=== PATIENT | male | born 1995 | race Caucasian/White ===

== ENCOUNTER 2021-06-23 09:01 | Outpatient (REF) | payer OTHER, SELFPAY ==
[2021-06-23 09:17] LABS: MANUAL DIFF FLAG NO
[2021-06-23 10:22] LABS: Basophils Percent Auto 0.8 % (0-2); Eosinophils Absolute Auto 0.2 X10*3/uL (0.0-0.4); Eosinophils Percent Auto 2.8 % (0-4); Hematocrit 44.1 % (42.0-52.0); Hemoglobin 14.9 g/dl (14.0-18.0); Imm Gran Abs Auto 0.01 X10*3/uL (0.00-0.03); Imm Gran Pct Auto 0.2 % (0.0-0.4); Lymphocytes Absolute Auto 1.5 X10*3/uL (1.2-4.9); Mean Corpuscular HGB Conc 33.8 g/dl (31.0-36.0); Mean Corpuscular Volume 88.7 fL (80.0-98.0); Mean Platelet Volume 9.8 fL (9.4-12.4); Monocytes Absolute Auto 0.5 X10*3/uL (0.1-1.2); Monocytes Percent Auto 8.9 % (2-11); Neutrophils Absolute Auto 3.1 x10*3/uL (2.0-8.3); Neutrophils Percent Auto 58.3 % (45-73); Platelet Count 229 X10*3/uL (160-400); Red Blood Count 4.97 X10*6/uL (4.60-5.80); Red Cell Distribution Width 12.4 % (11.0-16.0); White Blood Count 5.3 X10*3/uL (4.8-10.8)
[2021-06-23 10:41] LABS: Appearance Urine HAZY; Color Urine YELLOW; Glucose Urine UA NEG (NEG); Leukocyte Esterase Urine NEG (NEG); Nitrite Urine NEG (NEG); Urine Blood NEG (NEG); Urine Ketones NEG (NEG); Urine Protein NEG (NEG-TRACE)
[2021-06-23 10:47] LABS: Alanine Aminotransferase 17 U/L (0-40); Albumin Level 4.6 g/dL (3.5-5.0); Alkaline Phosphatase 53 U/L (39-117); Anion Gap 10 (12-20); Aspartate Amino Transferase 16 U/L (5-37); Bilirubin Total 0.8 mg/dL (0.0-1.0); Blood Urea Nitrogen 12 mg/dL (9-16); Calcium 9.6 mg/dL (8.4-10.2); Carbon Dioxide 28 mmol/L (22-29); Chloride 106 mmol/L (96-108); Cholesterol 170 mg/dL; Estimated Glomerular Filt Rate > 60; Glucose Fasting 84 mg/dL (60-99); HDL Cholesterol 52 mg/dL; LDL Cholesterol Calculated 111 mg/dl; Potassium 4.6 mmol/L (3.3-5.1); Sodium 139 mmol/L (135-145); Total Protein 7.2 g/dL (6.5-8.0); Triglycerides 37 mg/dL
[2021-06-23 11:08] LABS: TSH reflex Free T4 1.53 uIU/mL (0.32-4.0)
== END 2021-06-23 09:02 | disposition home or self-care (01) ==
LOC: HO.LAB 09:01
PROVIDERS: PCP Family Medicine; Visit Provider Hospitalist
DX: Z00.00 Encounter for general adult medical examination without abnormal findings (principal)
CPT/HCPCS: 36415; 80053; 80061; 81003; 84443; 85025

== ENCOUNTER 2022-11-19 10:46 | Outpatient (AMB) | payer OTHER, SELFPAY ==
[2022-11-19 10:53] VITALS: BP 132/72; PULSE 67; RESP 16; O2SAT 99; BMI 22.6
--- NOTE | 2022-11-19 10:53 | MHC.PC.OV ---
Vital Signs 11/19/22 10:53 Height 5 ft 9 in Weight 153 lb 6 oz BMI 22.6 BP 132/72 Blood Pressure Location Lt brachial Position Sitting Respiration 16 Pulse 67 Pulse Source Pulse Oximeter Pulse Oximetry (%) 99 Oxygen Delivery Method Room Air Intake Visit Reasons: CPE Intake Note: Patient is here for his physical today. Allergies No Known Allergies Allergy (Verified 11/19/22 10:59) Tobacco use date assessed: 11/19/22 Dental Screening Dental Screen Date: 11/19/22 Did you have a dental visit in the last 12 months?: No Did you have a dental problem in the last 6 months where you did not have access to dental care?: No Was dental information given to patient?: Yes HPI CPE HPI Details 26 y/o male presents for a CPE with f/u labs. No recent labs to review. PMHx: H/o cyst SurgHx: Cyst removal FHx: Grandmother: Breast Cancer. Uncle: Lung Cancer, smoker. SocHx: Smokes MJ daily. No cigarettes. No drugs. Single episode of palpitations. No chest pain associated with it. 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 José Luis Wang, Nayeli Song, Jas Sawyer and colleagues, with an educational zaida from [employer]. Review of Systems Const Denies chills, Denies fatigue, Denies fever(s), Denies headache(s) and Denies weakness Eyes Denies change in vision ENT Denies dizziness, Denies headache(s), Denies hearing loss, Denies nasal congestion, Denies sinus pain, Denies sinus pressure and Denies sore throat Card Denies chest pain, Denies lightheadedness, Denies dyspnea and Denies other (palpitations) Resp Denies cough, Denies dyspnea and Denies wheezing GI Denies abdominal pain, Denies melena, Denies hematochezia, Denies change in bowel habits, Denies dyspepsia and Denies nausea Denies hematuria and Denies dysuria Musc Denies abnormal gait, Denies myalgias, Denies arthralgias, Denies numbness and Denies tingling Skin/Breast Denies rash, Denies unusual bruising and Denies wounds Neuro Denies abnormal gait, Denies dizziness, Denies headache(s), Denies memory loss, Denies numbness, Denies Sensory deficit (Neuro), Denies tingling and Denies weakness Psych Denies anxiety, Denies depression and Denies memory loss Endo Denies cold intolerance, Denies fatigue, Denies heat intolerance, Denies polydipsia and Denies polyuria Tyler/Lymph Denies easy bleeding and Denies easy bruising Aller/Immun Denies wheezing Physical exam (Primary Care) Vital Signs: Last Vital Signs Pulse 67 11/19/22 10:53 Resp 16 11/19/22 10:53 BP 132/72 11/19/22 10:53 Pulse Ox 99 11/19/22 10:53 Oxygen Delivery Method Room Air 11/19/22 10:53 BMI result Body Mass Index 22.6 Tobacco/Smoking Status: Tobacco use Status Tobacco use date assessed 11/19/22 11/19/22 11:03 Patient Tobacco Use Status Never used Tobacco 11/19/22 11:03 e-Cigarette/Vaping Use Never Used 11/19/22 11:03 Const General: no acute distress, well developed, alert and awake Nutritional Appearance: well nourished Orientation/consciousness: patient oriented x3 HENMT Head: Yes normocephalic and Yes atraumatic Ears: hearing grossly normal bilaterally and TM's normal bilaterally General nose exam: Normal external nose present and Normal nares present Mouth: Normal oral and palatal mucosa present and moist mucous membranes Teeth and gingiva: dentition normal Throat: Yes posterior oropharynx normal Eyes General: appearance normal, both eyes and all related structures Pupils: Equal, round and reactive pupils present and Pupil accommodation reflex normal EOM: EOMs intact bilaterally Neck Neck: Yes normal visual inspection, Yes no lymphadenopathy and Yes trachea midline Thyroid: Thyroid normal Carotids: no bruits Lymphatic: no lymphadenopathy noted Chest Chest palpation & inspection: normal inspection of the chest Resp Effort & Inspection: normal respiratory effort Auscultation: clear to auscultation bilaterally Cardio Rate: regular rate Rhythm: regular rhythm Heart sounds: S1 normal heart sound present, S2 normal heart sound present, no gallops, no murmurs and no rubs Bruits: no abdominal aortic bruits and no carotid bruits GI Palpation (GI): No Abdominal aortic bruit present, Soft to palpation, nontender, No hepatosplenomegaly present and No Rebound tenderness present Auscultation: normal bowel sounds General: Yes no CVA tenderness Back/Spine/Pelvis Back: no CVA tenderness Cervical Spine: cervical ROM normal and No Cervical spine tenderness Thoracic/Lumbar Spine: thoraco-lumbar ROM normal, No pain with thoraco-lumbar ROM, No thoracic spinal tenderness and No lumbar spinal tenderness Skin Lesions: no lesions Rashes: no rashes Trauma: no lacerations or abrasions Wounds: no wounds Nails: normal Neuro General: patient oriented x3 Cranial nerves: Yes Equal, round and reactive pupils present Cognition (Neuro): normal cognition Gait exam (Neuro): Normal gait present Motor exam (neuro): 5/5 motor strength present throughout Sensory Exam: No Sensory deficit (Neuro) Deep tendon reflexes (DTR's): Right patellar reflex intensity grade: 2+ and Left patellar reflex intensity grade: 2+ Extrem General: Yes normal to inspection and No edema Psych Appearance: grossly normal Affect: normal affect Attitude: cooperative Thought process: Normal thought process present Assessment and Plan Assessment & Plan (1) Normal physical exam: Code(s): Z00.00 - Encounter for general adult medical examination without abnormal findings Plan: 26-year-old?male?presents?for?complete?physical?exam Exam?within?normal?limits?today Single?episode?of?palpitations-see?below He?will?get?labs?drawn?prior?to?follow-up?telemedicine?appointment. (2) Palpitation: Code(s): R00.2 - Palpitations Plan: Single?episode?of?palpitations?without?chest?pain No?additional?symptoms. He?will?return?to?office?for?follow-up?evaluation?if?these?recur. Orders: Orders Lipid Panel Today Z00.00 - Encounter for general adult medical examination without abnormal findings Microalbumin, Random (w Creat) Today I10 - Essential (primary) hypertension TSH reflex Free T4 Today Z00.00 - Encounter for general adult medical examination without abnormal findings UA and rflx microscopic Today Z00.00 - Encounter for general adult medical examination without abnormal findings Comprehensive [place]. Panel Fast Today Z00.00 - Encounter for general adult medical examination without abnormal findings Coding Level of Care Code Est Pt Level 3 (48294) Est Pt Prev Care 18-39y(92656) Diagnoses Normal physical exam Z00.00 Palpitation R00.2
== END 2022-11-19 11:43 | disposition home or self-care (01) ==
PROVIDERS: PCP Family Medicine; Visit Provider Family Medicine
DX: Z00.00 Encounter for general adult medical examination without abnormal findings (principal); R00.2 Palpitations
CPT/HCPCS: 99395

== ENCOUNTER 2022-12-02 10:40 | Outpatient (REF) | payer OTHER, SELFPAY ==
[2022-12-02 15:24] LABS: Alanine Aminotransferase 12 U/L (0-40); Albumin Level 4.5 g/dL (3.5-5.0); Alkaline Phosphatase 51 U/L (39-117); Anion Gap 11 (12-20); Aspartate Amino Transferase 15 U/L (5-37); Blood Urea Nitrogen 10 mg/dL (9-16); Carbon Dioxide 27 mmol/L (22-29); Chloride 106 mmol/L (96-108); Cholesterol 158 mg/dL (<200); Estimated Glomerular Filt Rate > 60; Glucose Fasting 87 mg/dL (60-99); HDL Cholesterol 53 mg/dL (>40); LDL Cholesterol Calculated 90 mg/dL (<100); Potassium 4.3 mmol/L (3.3-5.1); Sodium 140 mmol/L (135-145); Total Protein 7.3 g/dL (6.5-8.0); Triglycerides 76 mg/dL (<150)
[2022-12-02 15:29] LABS: TSH reflex Free T4 1.64 uIU/mL (0.32-4.0)
--- NOTE | 2023-11-04 14:17 | MHC.OT.OD ---
[address] [phone] F: [phone] Occupational Therapy Daily Note Patient Name: John Ballard Start Time: 12:30 End Time: 13:10 Visit Duration: 40 Billable Time: 40 Date of Evaluation: 11/03 Treatments to Date: Cancellations to Date: No Shows to Date: Authorized Treatment: Insurance End Date: Subjective: Pain Score: Pain Location: Objective: Tests and Measures: Assessment: Pt was seen today for fabrication of an MP J blocking orthoses to be worn at all times to promote Extensor tendon healing at the MP J level. He was educated on wear and care (a RMO was also trialed during today's vist, but pt. preferred joint blocking). 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
== END 2022-12-02 10:41 | disposition home or self-care (01) ==
LOC: HO.WFDLDS 10:40
PROVIDERS: Visit Provider Family Medicine
DX: Z00.00 Encounter for general adult medical examination without abnormal findings (principal)
CPT/HCPCS: 36415; 80053; 80061; 84443

== ENCOUNTER 2022-12-03 07:22 | Outpatient (REF) | payer OTHER, SELFPAY ==
[2022-12-03 11:26] LABS: Appearance Urine Clear; Color Urine Yellow; Glucose Urine UA Negative (Negative); Leukocyte Esterase Urine Negative (Negative); Nitrite Urine Negative (Negative); PH 8.5 (5.0-9.0); Urine Blood Negative (Negative); Urine Ketones Negative (Negative); Urine Protein Negative (Neg-Trace)
[2022-12-03 12:51] LABS: Creatinine Urine 116.47 mg/dL; Microalbumin Urine < 5.0 mg/L
== END 2022-12-03 07:23 | disposition home or self-care (01) ==
LOC: HO.WFDLDS 07:22
PROVIDERS: Visit Provider Family Medicine
DX: Z00.00 Encounter for general adult medical examination without abnormal findings (principal); I10 Essential (primary) hypertension
CPT/HCPCS: 81003; 82043; 82570

== ENCOUNTER 2022-12-26 15:52 | Outpatient (AMB) | payer OTHER, SELFPAY ==
--- NOTE | 2022-12-26 15:50 | MHC.PC.OV ---
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 Labs were drawn 12/02/22. Reviewed labs with pt. Triglycerides 76. TC 158. LDL 90. HDL 53. Single episode of palpitation. Pt reports he has tried to lower his caffeine in take and has not had any episodes since. 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 José Luis Wang, Nayeli Song, Jas Sawyer and colleagues, with an educational zaida from [employer]. Physical exam (Primary Care) Tobacco/Smoking Status: Tobacco use Status Tobacco use date assessed 11/19/22 12/26/22 15:51 Patient Tobacco Use Status Never used Tobacco 12/26/22 15:51 e-Cigarette/Vaping Use Never Used 12/26/22 15:51 Telehealth Telehealth Location of provider rendering services: practice address Location of patient: address on file Patient Identification confirmed using: Name, : Yes Telehealth method: voice only Patient verbally consented to treatment: Yes Patient verbally consented to billing insurance company: Yes Patient informed of any privacy concerns related to visit: Yes Minutes spent on Phone/Video with Pt.: 5 Assessment and Plan Assessment & Plan (1) Palpitation: Code(s): R00.2 - Palpitations Plan: Single?episode?of?palpitations?which?have?not?reoccurred He?has?been?avoiding?excessive?amounts?of?caffeine?and?I?encouraged?him?to?continue?this. He?will?let?me?know?if?he?has?any?further?episodes. Plan Lab?work?was?all?within?normal?limits Orders: Orders Comprehensive [place]. Panel Fast Today Z00.00 - Encounter for general adult medical examination without abnormal findings Lipid Panel Today Z00.00 - Encounter for general adult medical examination without abnormal findings UA and rflx microscopic Today Z00.00 - Encounter for general adult medical examination without abnormal findings Microalbumin, Random (w Creat) Today I10 - Essential (primary) hypertension TSH reflex Free T4 Today Z00.00 - Encounter for general adult medical examination without abnormal findings Coding Level of Care Code Tele Est Pt Level 2 (80041) Diagnoses Palpitation R00.2
== END 2022-12-26 16:30 ==
LOC: HO.HMGFM 15:52
PROVIDERS: PCP Family Medicine; Visit Provider Family Medicine
DX: R00.2 Palpitations (principal)
CPT/HCPCS: 99212

== ENCOUNTER → 2023-10-23 15:25 | Outpatient (BNVA) | payer OTHER, SELFPAY | PROVIDERS: PCP Family Medicine; Visit Provider Physician Assistant | DX: S61.214A Laceration without foreign body of right ring finger without damage to nail, initial encounter (principal); W26.9XXA Contact with unspecified sharp object(s), initial encounter | CPT/HCPCS: 12001; 99204 ==

== ENCOUNTER → 2023-10-27 08:01 | Outpatient (BNVA) | payer OTHER, SELFPAY | PROVIDERS: PCP Family Medicine; Visit Provider Physician Assistant Medical | DX: S66.821A Laceration of other specified muscles, fascia and tendons at wrist and hand level, right hand, initial encounter (principal); W26.9XXA Contact with unspecified sharp object(s), initial encounter | CPT/HCPCS: 99213 ==

== ENCOUNTER 2023-10-30 11:02 | Outpatient (AMB) | payer OTHER, SELFPAY ==
--- NOTE | 2023-10-30 11:04 | MHC.OFFVIS ---
Intake Visit Reasons: ZINC ETCHER-WC Right 4th MCP Laceration DOI 10/23/23 Intake Note: John is a 27 year old right hand dominant male who presents to the office today for a new patient visit for right 4th MCP laceration. Pt states on 10/23/23 he was working on a car at work and states he went to urgent care and got stitches placed. Pt states his ROM in his 4th MCP is limited. Pt states he isnt in as much pain but he is concerned about his limited ROM. Pt denies any previous surgeries or injuries on his right hand. Allergies No Known Allergies Allergy (Verified 10/30/23 11:04) HPI HPI ZINC ETCHER-WC Right 4th MCP Laceration DOI 10/23/23: Details: Patient is a 27-year-old male who presents for evaluation of right 4th dorsal MCP laceration, date of injury 10/23/2023. 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 Patient states that since this time, he has had limited extension capabilities in the right ring finger. Patient was previously evaluated in work connection, and sutures were placed in the laceration. Today, the patient reports that he is not experiencing any pain at baseline, but then he is still having some extension lag in his right ring finger. Patient denies any numbness or tingling in the right hand. No other acute complaints or concerns at this time. 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 Neuro: Normal sensation of the tips of all digits of the right hand at this time Vascular: Cap refill brisk Pain: Patient reports no tenderness to palpation about the laceration site, or elsewhere in the right ROM: Patient is able to make a closed fist with all digits of the right without difficulty Of note, the patient is noted to have an extensor lag of approximately 10 -15 degrees on the right ring finger with active extension, however he is able to hold full extension when performed passively for approximately 5-10 seconds before extensor lag reappears Patient is able to extend all other digits of the right hand fully without difficulty Skin: Well-approximated laceration over the dorsal 4th MCP joint of the right hand with sutures in place No evidence of infection noted General: No ecchymosis, erythema, or evidence of infection. Psych: Appears grossly normal Affect normal Attitude cooperative Assessment & Plan Assessment & Plan (1) Laceration of right hand: Code(s): S61.411A - Laceration without foreign body of right hand, initial encounter Category: Medical (2) Laceration of extensor muscle, fascia and tendon of right ring finger at wrist and hand level, initial encounter: Code(s): S66.324A - Laceration of extensor muscle, fascia and tendon of right ring finger at wrist and hand level, initial encounter Category: Medical Plan 1. Laceration of dorsal right hand over 4th MCP joint, with possible extensor tendon laceration Date of injury 10/23/2023 Patient is educated about this condition and the typical recovery course At this time, due to the patient's inconsistent physical exam findings, I am unable to make the full determination if the patient does in fact have an extensor tendon laceration or not Due to this, the patient will be referred to see Dr. Nunez on 11/04/2023 for reassessment and discussion of further treatment options if indicated Patient is amenable to this plan In the meantime, the patient is encouraged to continue with [id number] exercises of the right hand Patient can return to work on a light duty basis, with a strict 2 lb weight restriction in his right hand, as well as the ability to keep the laceration site and dressing clean, dry, intact at all times Patient is also amenable to this plan Patient will follow-up next week with Dr. Nunez, sooner with any acute concerns Coding Level of Care Code New Pt Level 3 (56500) Diagnoses Laceration of right hand S61.411A Laceration of extensor muscle, fascia and tendon of right ring finger at wrist and hand level, initial encounter S66.324A
== END 2023-10-30 11:36 | disposition home or self-care (01) ==
PROVIDERS: PCP Family Medicine
DX: S61.411A Laceration without foreign body of right hand, initial encounter (principal); S66.324A Laceration of extensor muscle, fascia and tendon of right ring finger at wrist and hand level, initial encounter; Z04.2 Encounter for examination and observation following work accident
CPT/HCPCS: 99203

== ENCOUNTER → 2023-10-30 11:02 | Outpatient (BNVA) | payer OTHER, SELFPAY | PROVIDERS: PCP Family Medicine | DX: S61.214A Laceration without foreign body of right ring finger without damage to nail, initial encounter (principal); W26.9XXA Contact with unspecified sharp object(s), initial encounter | CPT/HCPCS: 99202 ==

== ENCOUNTER → 2023-11-03 09:02 | Outpatient (BNVA) | payer OTHER, SELFPAY | PROVIDERS: PCP Family Medicine; Visit Provider Physician Assistant Medical | DX: Z48.02 Encounter for removal of sutures (principal); S61.214A Laceration without foreign body of right ring finger without damage to nail, initial encounter; S56.425A Laceration of extensor muscle, fascia and tendon of right ring finger at forearm level, initial encounter; W26.9XXA Contact with unspecified sharp object(s), initial encounter | CPT/HCPCS: 99212; 99213 ==

== ENCOUNTER 2023-11-04 10:07 | Outpatient (AMB) | payer OTHER, SELFPAY ==
[2023-11-04 10:18] VITALS: BMI 22.6
--- NOTE | 2023-11-04 10:18 | A.OFFVIS_ITS ---
Vital Signs 11/04/23 10:18 Height 5 ft 9 in Weight 153 lb 6 oz BMI 22.6 Intake Visit Reasons: OV-WC Right 4th MCP Laceration DOI 10/23/23 Intake Note: John is a 27 year old right hand dominant male who presents to the office today for a follow up on a WC injury: right 4th MCP laceration, DOI 10/23/23. Patient reports he is pain tightness at the MCP joint of the right 4th finger. Denies numbness, tingling, or locking. He has returned to work on light duty restrictions. Allergies No Known Allergies Allergy (Verified 11/04/23 10:23) HPI HPI OV-WC Right 4th MCP Laceration DOI 10/23/23: Details: John is a 27 year old right hand dominant man who presents for a right ring finger laceration, DOI: 10/23/23. 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 This is a workers comp injury. 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 He was seen by work connections where his skin laceration was sutured. He was seen by RUTH ANN Hoffman on 10/30/23 who was concerned for a possible extensor tendon laceration. He reports some pain in his ring finger, along with difficulties in his motion. He has been working on ROM exercises at home. He denies any numbness, tingling, locking, or drainage. He has returned to work on a 2lb weight limit, which he says his going well. He says his sutures were removed yesterday. 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 Current occupational exposures/hazards: No Cognitive needs: No Hearing needs: No Vision needs: No Review of Systems Const All systems reviewed & are unremarkable except as noted in HPI and below Physical Exam Vital Signs: BMI result Body Mass Index 22.6 Const General: cooperative, healthy appearing and no acute distress Orientation/consciousness: patient oriented x3 HEENT Head: Yes normocephalic and Yes atraumatic Eyes EOM: EOMs intact bilaterally Resp Effort & Inspection: normal respiratory effort and able to speak in complete sentences Cardio Jugular venous distension: no JVD Skin General skin exam: turgor normal Rashes: no rashes Neuro General: patient oriented x3 Extrem Other: Evaluation of Right Upper Extremity: The patient is alert, oriented, and in no acute distress Neuro: Median, Ulnar, Radial nerves motor and sensory intact and sensation is normal to the tips of all digits Vascular: Cap refill brisk ROM: He can make a fist and extend all his digits He has a ring finger extension lag of ~5 degrees at the MCP joint. Initially he had an extensor lag of the ring finger PIP joint of ~25 degrees, but with encouragement he was able to fully extend at the PIP joint Skin: Healing laceration over the ring finger MCP joint. It is oblique and measures about 1 cm in length. It appears to be healing well with no erythema drainage or evidence of infection. Psych Appearance: grossly normal Affect: normal affect Attitude: cooperative Assessment & Plan Assessment & Plan (1) Laceration of extensor muscle, fascia and tendon of right ring finger at wrist and hand level, subsequent encounter: Code(s): S66.324D - Laceration of extensor muscle, fascia and tendon of right ring finger at wrist and hand level, subsequent encounter Category: Medical Plan Assessment & Plan: 1. 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 We do need to protect the tendon as it continues to heal for the next 3-4 weeks. I referred him to OT hand therapy to have a custom finger splint made for him, which will allow for ~20 degrees flexion at the MCP joint He was fitted for a finger spica splint today, extending across the volar aspect of the MCP joint, to be worn until he is seen by OT hand therapy. He can remove his splint to shower I discussed activity modification, he should avoid making a fist for the next few weeks He was given a note for work to continue light duty, with a 2lb weight limit and no gripping/making a fist and to wear his finger splint, until his next appointment. We added that he can drive if he feels safe to do so. He says that he has been driving his car, and feels that he has been safe. He will follow up in 3-4 weeks to see how he is doing. At that time we will likely allow him more full range of motion. Scribed for Onelia Nunez MD by Francisco Andrade, medical record librarians teacher, on 11/04/23 at 10:35 AM, EST. Orders: Orders OT Evaluation and Treatment Today S66.324D - Laceration of extensor muscle, fascia and tendon of right ring finger at wrist and hand level, subsequent encounter Coding Level of Care Code Est Pt Level 4 (04698) Diagnoses Laceration of extensor muscle, fascia and tendon of right ring finger at wrist and hand level, subsequent encounter S66.324D
== END 2023-11-04 11:09 | disposition home or self-care (01) ==
PROVIDERS: PCP Family Medicine; Visit Provider Orthopaedic Surgery
DX: S66.324D Laceration of extensor muscle, fascia and tendon of right ring finger at wrist and hand level, subsequent encounter (principal); Z04.2 Encounter for examination and observation following work accident
CPT/HCPCS: 99214

== ENCOUNTER → 2023-11-04 10:07 | Outpatient (BNVA) | payer OTHER, SELFPAY | PROVIDERS: PCP Family Medicine; Visit Provider Orthopaedic Surgery | DX: S66.324D Laceration of extensor muscle, fascia and tendon of right ring finger at wrist and hand level, subsequent encounter (principal) | CPT/HCPCS: 99212 ==

== ENCOUNTER 2023-11-11 08:18 | Outpatient (RCR) | payer OTHER, SELFPAY ==
--- NOTE | 2023-11-11 13:33 | MHC.OT.EP ---
[address] [phone] Occupational Therapy Plan of Care Patient Name: John Ballard Date of Evaluation: 11/11/23 Diagnosis: Laceration of extensor muscle Pain Location: dorsal side of hand ; intermittent Pain Score: 3 Pain Scale Used: Numeric (0 - 10) Aggravating Factors: could not quantify Alleviating Factors: Assessment: Pt is a 27 yr old R hand dominant male who lacerated his extensor muscle on 10/23/2023 of his R RF. He has a follow up appt. w/ RUTH ANN Hilton on 10/29 who referred him to Dr. Nunez in regards to concern for possible damage of pt's extensor tendon. Pt was referred to therapy on 11/03 where an MP J blocking orthoses was fabricated for him. He is here today for a follow up and adjustments to orthoses. He was instructed per MD to wear the orthoses for the next 3-4 2eeks until his follow up. Pt reports minimal discomfort, and is continuing to work light duty Frequency and Duration: The patient will be seen pt will return to therapy if needed after follow up w/ MD Short Term Goals: Escape Wheel Tooth Cutter Goals: Pt will be complaint w/ his HEP Pt will be d/charged from splint to RPLOF Treatment Plan: Splinting Patient Education Pt was seen today for modifications of orthoses to promote a better fit Electronically Signed By: Verenice Chris OTR/L Please Sign and return to therapist. Thank you once again for your referral.
== END 2024-06-08 11:05 | disposition home or self-care (01) ==
LOC: HO.OT 08:18
PROVIDERS: PCP Family Medicine; Visit Provider Orthopaedic Surgery
DX: S66.324D Laceration of extensor muscle, fascia and tendon of right ring finger at wrist and hand level, subsequent encounter (principal)
CPT/HCPCS: 97165; 97760

== ENCOUNTER 2023-11-25 08:35 | Outpatient (AMB) | payer OTHER, SELFPAY ==
--- NOTE | 2023-11-25 08:37 | MHC.OFFVIS ---
Vital Signs 11/25/23 08:46 Height 5 ft 9 in Weight 155 lb BMI 22.9 Handedness Right Intake Visit Reasons: OV-WC Right 4th MCP Laceration DOI 10/23/23 Intake Note: John is a 27 year old right hand dominant male who presents to the office today for a follow up on a WC injury: right 4th MCP laceration, DOI 10/23/23. Patient reports he feels his finger is still stiff and sometimes has very minimal pain. He removes his splint to move his fingers around and says this may be aggravating the finger a bit but he states he has not been making a fist. He went to OT but says they told him it wasn't on his script that he needed OT so they only provided him with his custom splint and did not provide further treatment. He says yesterday he had a rolling pain over his MCP joint of his 4th digit of the right hand, he flattened his hand until this pain went away. Allergies No Known Allergies Allergy (Verified 11/25/23 08:46) HPI HPI OV-WC Right 4th MCP Laceration DOI 10/23/23: Details: John is a 27 year old right hand dominant man who returns for his right ring finger partial extensor tendon laceration at the MCP joint, DOI: 10/23/23. This is a workers comp injury. 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 He says he is doing well overall. He has limited ROM of his finger, and occasional pain, which he says is tolerable. He has been removing his splint to move his finger around, but denies trying to make a fist. He has been wearing his custom finger splint made by OT as instructed. He has been working on ROM exercises at home. He denies any numbness, tingling, locking, or drainage. He has returned to work on a 2lb weight limit, which he says his going well. 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 He can make a fist with his splint on and extend all his digits. The custodum splint is keeping him from flexing his MCP joint beyond about 30 degrees. He has a ring finger extension lag of ~5 degrees at the MCP joint. With the splint on, he has good active flexion to a fist, including his ring finger PIP joint After removing the splint, he has improved active extension of the ring finger, almost to full extension. This is an improvement. Skin: Healed laceration over the ring finger MCP joint. It is oblique and measures ~1cm in length. No erythema drainage or evidence of infection. Assessment & Plan Assessment & Plan (1) Laceration of extensor muscle, fascia and tendon of right ring finger at wrist and hand level, subsequent encounter: Code(s): S66.324D - Laceration of extensor muscle, fascia and tendon of right ring finger at wrist and hand level, subsequent encounter Category: Medical Plan Assessment & Plan: 1. 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 He is in agreement. He will continue to wear his custom finger splint, made for him by OT, which will allow for ~20 degrees flexion at the MCP joint. He will remove this to work on daily gentle finger ROM exercises at home. He can discontinue his splint in 2 weeks. 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 He is able to perform oil changes as tolerated, as long as he keeps his splint on, clean, & dry. He will follow up in 4 weeks for a ROM check and to see if he may benefit from OT hand therapy. He may cancel this if he is doing well. Scribed for Onelia Nunez MD by Francisco Andrade, medical record coder, on 11/25/23 at 9:05 AM, EST. Coding Level of Care Code Est Pt Level 3 (02562) Diagnoses Laceration of extensor muscle, fascia and tendon of right ring finger at wrist and hand level, subsequent encounter S66.324D
[2023-11-25 08:46] VITALS: BMI 22.9
== END 2023-11-25 09:17 | disposition home or self-care (01) ==
PROVIDERS: PCP Family Medicine; Visit Provider Orthopaedic Surgery
DX: S66.324D Laceration of extensor muscle, fascia and tendon of right ring finger at wrist and hand level, subsequent encounter (principal)
CPT/HCPCS: 99213

== ENCOUNTER → 2023-11-25 08:35 | Outpatient (BNVA) | payer OTHER, SELFPAY | PROVIDERS: PCP Family Medicine; Visit Provider Orthopaedic Surgery | DX: S66.324D Laceration of extensor muscle, fascia and tendon of right ring finger at wrist and hand level, subsequent encounter (principal) | CPT/HCPCS: 99212 ==

== ENCOUNTER 2024-11-19 10:46 | Outpatient (AMB) | payer OTHER, SELFPAY ==
--- NOTE | 2024-11-19 10:55 | A.OFFPC_ITS ---
Vital Signs 11/19/24 11:02 Height 5 ft 9 in Weight 150 lb 8 oz BMI 22.2 BP 120/68 Blood Pressure Location Rt brachial Position Sitting Respiration 16 Pulse 60 Pulse Source Pulse Oximeter Temp 97.8 F Temp Source Oral Intake Visit Reasons: Blood in Stool Intake Note: patient here c/o blood in stool and having some concentration issues Clarification Operator Required: No Allergies No Known Allergies Allergy (Verified 11/19/24 11:21) Medication List - Last Reconciled 11/19/24 by Jessica Monzon CNP No Known Home Meds Tobacco use date assessed: 11/19/24 Dental Screening Dental Screen Date: 11/19/24 Did you have a dental visit in the last 12 months?: No Did you have a dental problem in the last 6 months where you did not have access to dental care?: No Was dental information given to patient?: Patient has dentist HPI HPI Comments History of Present Illness Details 28-year-old male presents with complaint s of bloody stool, once 3 days ago. He noticed little brighter red blood in his stool. He had rectal tenderness resolved after a few days. He denies constipation or straining with defecation. He denies n/v/d. Denies family history of colorectal cancer. 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 1. Little interest or pleasure in doing things: not at all 2. Feeling down, depressed, or hopeless: not at all 3. Trouble falling or staying asleep, or sleeping too much: several days 4. Feeling tired or having little energy: several days 5. Poor appetite or overeating: not at all 6. Feeling bad about yourself - or that you are a failure or have let yourself or your family down: not at all 7. Trouble concentrating on things, such as reading the newspaper or watching television: nearly every day 8. Moving or speaking so slowly that other people could have noticed. Or the opposite - being so fidgety or restless that you have been moving around a lot more than usual: not at all 9. Thoughts that you would be better off or of hurting yourself in some way: not at all Total score: 5 Depression Screening Interpretation: Positive Depression Screening Done: Yes Source: Developed by Drs. José Luis Wang, Nayeli Song, Jas Sawyer and colleagues, with an educational zaida from [employer]. Thrive Questionnaire Date Thrive assessed: 11/19/24 I am a: Patient What is your living situation today?: I have a steady place to live Within the past 12 months, did the food you bought not last and you didn't have the money to get more?: Never true Within the past 12 months, did you worry whether your food would run out before you got money to buy more?: Never true Do you have trouble paying for medicines?: No Do you have trouble getting transportation to medical appointments?: No Do you have trouble paying your heating and electricity bill?: No Do you have trouble taking care of your child, family member or friend?: No Do you have trouble with day-to-day activities such as bathing, preparing meals, shopping, managing finances, etc.?: No Are you currently unemployed and looking for a job?: No Are you interested in more education?: No Please select the resources that you would like help with: None Currently or been in a relationship where the following occur: No concerns reported THRIVE Score: 0 AUDIT C Alcohol Use Questionnaire (AUDIT-C) 1. How often do you have a drink containing alcohol?: 2-4 times a month 2. How many drinks containing alcohol do you have on a typical day when you are drinking?: 3 or 4 3. How often do you have six or more drinks on one occasion?: Less than monthly Total Score: 4 Score Reviewed/Action Taken: Yes UBALDO-7 AMB Questionnaire UBALDO-7 Date UBALDO - 7 assessed: 06/22/21 Feeling nervous, anxious, or on edge: 0 = Not at all Not being able to stop or control worryin = Not at all Worrying too much about different things: 0 = Not at all Trouble relaxin = Not at all Being so restless that it is hard to sit still: 0 = Not at all Becoming easily annoyed or irritable: 0 = Not at all Feeling afraid as if something awful might happen: 0 = Not at all Total UBALDO-7 score (0-4 normal; 5-9 mild; 10-14 moderate; 15-21 severe): 0 Source: Developed by Drs. José Luis Wang, Nayeli Song, Jas Sawyer and colleagues, with an educational zaida from [employer]. Review of Systems Const Details: Const Denies chills, Denies fatigue, Denies fever(s), Denies headache(s) and Denies weakness ENT Denies dizziness and Denies headache(s) Card Denies chest pain, Denies lightheadedness, Denies dyspnea and Denies other (Palpitations) Resp Denies cough, Denies dyspnea, Denies wheezing and Denies other ( shortness of breath) GI Denies abdominal pain, Denies melena, Denies hematochezia, Denies change in bowel habits, Denies dyspepsia and Denies nausea Denies hematuria and Denies dysuria Musc Denies abnormal gait, Denies myalgias, Denies arthralgias, Denies numbness and Denies tingling Skin/Breast Denies rash, Denies unusual bruising and Denies wounds Neuro Denies abnormal gait, Denies dizziness, Denies headache(s), Denies memory loss, Denies numbness, Denies Sensory deficit (Neuro), Denies tingling and Denies weakness Psych Denies anxiety, Denies depression, Denies memory loss Endo Denies cold intolerance, Denies fatigue, Denies heat intolerance, Denies polydipsia and Denies polyuria Aller/Immun Denies wheezing Physical exam (Primary Care) Vital Signs: Last Vital Signs Temp 97.8 F 11/19/24 11:02 Pulse 60 11/19/24 11:02 Resp 16 11/19/24 11:02 BP 120/68 11/19/24 11:02 BMI result Body Mass Index 22.2 Tobacco/Smoking Status: Tobacco use Status Tobacco use date assessed 11/19/24 11/19/24 11:05 Patient Tobacco Use Status Never used Tobacco 11/19/24 10:56 e-Cigarette/Vaping Use Never Used 11/19/24 10:56 PHQ-9: PHQ-9 Score PHQ-9: Total score 5 11/19/24 10:56 Depression Screening Interpretation: Positive Thrive Assessment: Date of Thrive Assessment Date Thrive assessed 11/19/24 11/19/24 10:56 Currently or been in a relationship where the following occur: No concerns reported Const Other: General: no acute distress and well developed Nutritional Appearance: well nourished Orientation/consciousness: patient oriented x3 HENMT Head: Yes normocephalic and Yes atraumatic Eyes General: appearance normal, both eyes and all related structures Pupils: Equal, round and reactive pupils present EOM: EOMs intact bilaterally Resp Effort & Inspection: normal respiratory effort Auscultation: clear to auscultation bilaterally Cardio Rate: regular rate Rhythm: regular rhythm Heart sounds: S1 normal heart sound present, S2 normal heart sound present, no gallops, no murmurs and no rubs GI Palpation (GI): No Abdominal aortic bruit present, Soft to palpation, nontender, No hepatosplenomegaly present and No Rebound tenderness present Auscultation: normal bowel sounds General: Yes no CVA tenderness Back/Spine/Pelvis Back: no CVA tenderness Cervical Spine: cervical ROM normal and No Cervical spine tenderness Thoracic/Lumbar Spine: thoraco-lumbar ROM normal, No pain with thoraco-lumbar ROM, No thoracic spinal tenderness and No lumbar spinal tenderness Extrem General: Yes normal to inspection, No edema and No calf tenderness Skin General: warm and dry. Normal skin color. Normal skin turgor Lesions: no lesions Rashes: no rashes Trauma: no lacerations or abrasions Wounds: no wounds Nails: normal Neuro General: patient oriented x3, gait normal and no focal neuro deficit Cranial nerves: Yes Equal, round and reactive pupils present Cognition (Neuro): normal cognition Gait exam (Neuro): Normal gait present Sensory Exam: No Sensory deficit (Neuro) Psych Appearance: grossly normal Affect: normal affect Attitude: cooperative Thought process: Normal thought process present Coding Level of Care Code New Pt Level 3 (34500) Diagnoses Blood in stool K92.1 Assessment & Plan Assessment & Plan (1) Blood in stool: Code(s): K92.1 - Melena Category: Medical Plan: Reports bloody stool, once 3 days ago. He noticed little brighter red blood in his stool. He had rectal tenderness resolved after a few days. He denies constipation or straining with defecation. He denies n/v/d. Denies family history of colorectal cancer. Normal exam. Strong suspicion of hemorrhoids. Less suspicion of colorectal cancer. Monitor symptoms and if persist, follow-up with PCP. Verbalized understanding and agreed with the plan.
[2024-11-19 11:02] VITALS: BP 120/68; PULSE 60; RESP 16; TEMP 36.6; BMI 22.2
== END 2024-11-19 11:33 | disposition home or self-care (01) ==
LOC: HO.HMCFM 10:47
PROVIDERS: PCP Family Medicine; Visit Provider Nurse Practitioner Family
DX: K92.1 Melena (principal)

== ENCOUNTER → 2024-11-19 10:46 | Outpatient (BNVA) | payer OTHER, SELFPAY | PROVIDERS: PCP Family Medicine; Visit Provider Nurse Practitioner Family | DX: K92.1 Melena (principal) | CPT/HCPCS: 99202 ==